=== PATIENT | female | born 1960 | race Caucasian/White ===

== ENCOUNTER 2017-07-28 17:02 | Emergency (ER) | payer OTHER ==
[~2017-07-28] VITALS: Ht 154.9 cm; Wt 105.0 kg
[~2017-07-28 17:02] MED LIST: LEVO112T17 PO; TAB-TAB PO
[2017-07-28 17:03] VITALS: BP 132/78; PULSE 104; RESP 15; TEMP 98.8; O2SAT 99
--- NOTE | 2017-07-28 18:35 | PD ---
HPI Chief Complaint: Abnormal Results Time Seen by Provider: 18:25 Travel History International Travel<30 days: No Contact w/Intl Traveler<30days: No Traveled to known affect area: No History of Present Illness HPI Patient is a 57-year-old female with history of thyroid disorder who was sent to the emergency room for evaluation of possible DVT. Patient reports that for the past couple days, she has noticed some hard nodules to her bilateral lower extremities, patient reports that she followed-up with her primary care doctor and was sent to the emergency room to rule out DVT. Patient denies history of DVT or PE, patient denies any chest pain or shortness of breath. Patient denies any recent travels or trips or prolonged immobilization. Patient reports that she currently is not taking any anticoagulants. PFSH Past Medical History Arthritis: Yes Blood Disorders: No Cancer: No Cardiovascular Problems: No Chemotherapy: No Immune Disorder: No Psychiatric: No Reproductive: Yes Respiratory: No Radiation Therapy: No Thyroid Disease: Yes Past Surgical History AICD: No Arteriovenous Shunt: No Insulin Pump: No Joint Replacement: No Pacemaker: No Social History Alcohol Use: No Tobacco Use: No Substance Use: No Allergies-Medications (Allergen,Severity, Reaction): Coded Allergies: No Known Allergies (Verified Allergy, Severe, 07/28/17) Reported Meds & Prescriptions Reported Meds & Active Scripts Active Reported Levothyroxine (Levothyroxine Sodium) 75 Mcg Tab 75 Mcg PO DAILY Review of Systems General / Constitutional: No: Fever Eyes: No: Visual changes HENT: No: Headaches Cardiovascular: No: Chest Pain or Discomfort Respiratory: No: Shortness of Breath Gastrointestinal: No: Abdominal Pain Genitourinary: No: Dysuria Musculoskeletal: No: Pain Skin: No Rash Neurologic: No: Weakness Psychiatric: No: Depression Endocrine: No: Polydipsia Hematologic/Lymphatic: No: Easy Bruising Physical Exam Narrative GENERAL: NAD, Nontoxic SKIN: Focused skin assessment warm/dry. HEAD: Atraumatic. Normocephalic. EYES: Pupils equal and round. No scleral icterus. No injection or drainage. ENT: No nasal bleeding or discharge. Mucous membranes pink and moist. NECK: Trachea midline. No JVD. CARDIOVASCULAR: Regular rate and rhythm. No murmur appreciated. RESPIRATORY: No accessory muscle use. Clear to auscultation. Breath sounds equal bilaterally. GASTROINTESTINAL: Abdomen soft, non-tender, nondistended. Hepatic and splenic margins not palpable. MUSCULOSKELETAL: No obvious deformities. No clubbing. No cyanosis. No edema. Patient with areas of tenderness to b/l calfs, mild calf tenderness NEUROLOGICAL: Awake and alert. No obvious cranial nerve deficits. Motor grossly within normal limits. Normal speech. PSYCHIATRIC: Appropriate mood and affect; insight and judgment normal. Data Data Last Documented VS Vital Signs Date Time Temp Pulse Resp B/P (MAP) Pulse Ox O2 Delivery O2 Flow Rate FiO2 07/28/17 17:10 100 Room Air 07/28/17 17:03 98.8 104 15 132/78 (96) Orders Orders Basic Metabolic Panel (Bmp) (07/28/17 18:29) Complete Blood Count With Diff (07/28/17 18:29) Prothrombin Time / Inr (Pt) (07/28/17 18:29) Act Partial Throm Time (Ptt) (07/28/17 18:29) Us Leg Venous Doppler Bilat (07/28/17 ) Labs Laboratory Tests Test 07/28/17 18:10 White Blood Count 9.2 TH/MM3 Red Blood Count 4.62 MIL/MM3 Hemoglobin 13.2 GM/DL Hematocrit 39.5 % Mean Corpuscular Volume 85.7 FL Mean Corpuscular Hemoglobin 28.5 PG Mean Corpuscular Hemoglobin Concent 33.3 % Red Cell Distribution Width 15.0 % Platelet Count 220 TH/MM3 Mean Platelet Volume 9.6 FL Neutrophils (%) (Auto) 72.1 % Lymphocytes (%) (Auto) 16.6 % Monocytes (%) (Auto) 8.8 % Eosinophils (%) (Auto) 1.4 % Basophils (%) (Auto) 1.1 % Neutrophils # (Auto) 6.6 TH/MM3 Lymphocytes # (Auto) 1.5 TH/MM3 Monocytes # (Auto) 0.8 TH/MM3 Eosinophils # (Auto) 0.1 TH/MM3 Basophils # (Auto) 0.1 TH/MM3 CBC Comment DIFF FINAL Differential Comment Prothrombin Time 10.4 SEC Prothromb Time International Ratio 0.9 RATIO Activated Partial Thromboplast Time 28.5 SEC Blood Urea Nitrogen 15 MG/DL Creatinine 1.04 MG/DL Random Glucose 102 MG/DL Calcium Level 9.0 MG/DL Sodium Level 139 MEQ/L Potassium Level 3.7 MEQ/L Chloride Level 107 MEQ/L Carbon Dioxide Level 26.1 MEQ/L Anion Gap 6 MEQ/L Estimat Glomerular Filtration Rate 54 ML/MIN MDM Medical Decision Making Medical Screen Exam Complete: Yes Emergency Medical Condition: Yes Medical Record Reviewed: Yes Interpretation(s) Vital Signs Date Time Temp Pulse Resp B/P (MAP) Pulse Ox O2 Delivery O2 Flow Rate FiO2 07/28/17 17:03 98.8 104 15 132/78 (96) 99 Differential Diagnosis DVT, superficial thrombophlebitis Narrative Course During the course of the patients emergency department visit, the patients history, examination, and differential diagnosis were reviewed with the patient. The patient was placed on a athletic monitor with oximetry and frequent blood pressure monitoring. The patients laboratory studies were reviewed and remarkable for: CBC & BMP Diagram 07/28/17 18:10 Calcium Level 9.0 Radiology studies were reviewed and remarkable for : Last Impressions Lower Extremity Ultrasound 07/28/17 0000 Signed Impressions: Service Date/Time: Friday, July 28, 2017 19:19 - CONCLUSION: No DVT. Jay Pelaez MD A renal Labs and all studies with patient in detail. No DVT. Recommended patient to have repeat ultrasound in 1 week. Patient will follow-up with primary care doctor and will return to emergency room as needed. Diagnosis Primary Impression: Bilateral calf pain Patient Instructions: General Instructions Additional Instructions: Please provide patient with a copy of their lab work and studies at discharge* * Please follow up with your primary care doctor in 2-3 days Return to the ER if symptoms worsen or progress Return to the ER as needed Please have your ultrasound repeated in 1 week if swelling and pain persists Disposition: 01 DISCHARGE HOME Condition: Stable Dede Carney DO Jul 28, 2017 18:35
[2017-07-28] MEDS ORDERED: LEVO75TA3 PO (18:41)
[2017-07-28 19:31] LABS: AUTOMATED NEUTROPHIL # 6.6 TH/MM3 (1.8-7.7); BASOPHIL # 0.1 TH/MM3 (0-0.2); BASOPHIL % 1.1 % (0.0-2.0); EOSINOPHIL # 0.1 TH/MM3 (0-0.4); EOSINOPHIL % 1.4 % (0.0-4.0); HEMATOCRIT 39.5 % (35.0-46.0); HEMO FLAGS DIFF FINAL; LYMPH % 16.6 % (9.0-44.0); LYMPHOCYTE # 1.5 TH/MM3 (1.0-4.8); MEAN CELL VOLUME 85.7 FL (80.0-100.0); MEAN CORPUSCULAR HEMOGLOBIN 28.5 PG (27.0-34.0); MEAN CORPUSCULAR HGB CONC 33.3 % (32.0-36.0); MONO % 8.8 % (0.0-8.0); NEUT % 72.1 % (16.0-70.0); PLATELET COUNT 220 TH/MM3 (150-450); RED BLOOD COUNT 4.62 MIL/MM3 (4.00-5.30); WHITE BLOOD COUNT 9.2 TH/MM3 (4.0-11.0)
[2017-07-28 19:40] LABS: INTERNATIONAL NORMALIZED RATIO 0.9 RATIO; PROTHROMBIN TIME - PATIENT 10.4 SEC (9.8-11.6)
[2017-07-28 19:54] LABS: APTT (PATIENT) 28.5 SEC (24.3-30.1); BICARBONATE 26.1 MEQ/L (21.0-32.0); POTASSIUM 3.7 MEQ/L (3.5-5.1)
--- NOTE | 2017-07-28 20:24 | RADRPT ---
EXAM DATE/TIME: 07/28/2017 19:19 [facility] COMPARISON: No previous studies available for comparison. INDICATIONS : Bilateral leg swelling. MEDICAL HISTORY : Arthritis. Thyroid disease. Head trauma. SURGICAL HISTORY : Gastric bypass. ENCOUNTER: Initial ACUITY: 3 days PAIN SCORE: 0/10 LOCATION: Bilateral legs. TECHNIQUE: Venous ultrasound of the left and right leg was performed from the inguinal ligament to the proximal calf. Real-time, color Doppler and spectral tracing, compression and augmentation techniques were us ed. FINDINGS: RIGHT LEG: There is normal compressibility of the deep venous system from the inguinal region to the proximal ca lf. No echogenic clot is seen in the lumen of the common femoral, femoral, popliteal, and posterior tibial veins. There is a normal response of the venous system to proximal and distal augmentation an d respiration. LEFT LEG: There is normal compressibility of the deep venous system from the inguinal region to the proximal ca lf. No echogenic clot is seen in the lumen of the common femoral, femoral, popliteal, and posterior tibial veins. There is a normal response of the venous system to proximal and distal augmentation an d respiration. CONCLUSION: No DVT. Jay Pelaez MD on July 28, 2017 at 20:21 Board Certified Radiologist. This report was verified electronically.
[2017-07-28 22:31] VITALS: BP 135/67; PULSE 77; RESP 18; O2SAT 100
== END 2017-07-28 22:30 | disposition home or self-care (01) ==
LOC: NEPD 17:02
DX: M79.661 Pain in right lower leg (principal); M79.662 Pain in left lower leg
CPT/HCPCS: 80048; 85025; 85610; 85730; 93970; 99284